=== PATIENT | female | born 1990 | race Hispanic/Latino ===

== ENCOUNTER 2019-03-10 20:00 | Emergency (ER) | payer MEDICAID | END 2019-03-10 20:41 | disposition home or self-care (01) | LOC: EDH 20:00 | DX: G51.0 Bell's palsy (principal); Z88.8 Allergy status to other drugs, medicaments and biological substances; Z79.899 Other long term (current) drug therapy ==

== ENCOUNTER 2021-03-17 18:17 | Emergency (ER) | payer MEDICAID ==
[~2021-03-17] VITALS: Ht 154.9 cm; Wt 98.9 kg
[2021-03-17 19:21] VITALS: BP 146/89
== END 2021-03-17 19:53 | disposition home or self-care (01) ==
LOC: EDH 18:17
DX: N63.10 Unspecified lump in the right breast, unspecified quadrant (principal)
CPT/HCPCS: 99281

== ENCOUNTER 2021-04-01 17:05 | Emergency (ER) | payer MEDICAID ==
[~2021-04-01] VITALS: Ht 154.9 cm; Wt 99.3 kg
[2021-04-01] MEDS ORDERED: IPRATROPIUM/ALBUTEROL SULFATE 3 ML SOLUTION IH ONE (17:30)
[2021-04-01 17:56] LABS: BASOPHILS % (AUTO) 1.2 % (0.0-5.0); EOSINOPHILS % (AUTO) 3.6 % (0.0-8.0); LYMPHOCYTES % (AUTO) 55.9 % (21.0-51.0); MEAN CORPUSCULAR HEMOGLOBIN 26.9 pg (27.0-33.0); MEAN CORPUSCULAR HGB CONC 31.7 g/dL (32.0-36.0); MEAN CORPUSCULAR VOLUME 84.8 fL (79-99); MONOCYTES % (AUTO) 5.6 % (3.0-13.0); NEUTROPHILS % (AUTO) 33.3 % (40.0-77.0); PLATELET COUNT (AUTO) 213 K/uL (130-400); RED BLOOD CELL COUNT(AUTO) 4.95 MIL/uL (4.00-5.50); RED CELL DISTRIBUTION WIDTH 13.6 % (11.0-15.5)
[2021-04-01] MEDS ORDERED: SOLU-MEDROL 125MG VIAL IVP ONE (18:00)
[2021-04-01] MEDS ORDERED: ACETAMINOPHEN WITH CODEINE 1 TAB TAB PO ONE (18:00)
[2021-04-01] MEDS ORDERED: 0.9%NACL 1000ML 1,000 ML IV ONE (18:00)
[2021-04-01 18:10] LABS: APPEARANCE,URINE Cloudy (CLEAR); BILIRUBIN,URINE Negative (NEGATIVE); COLOR,URINE Dark Yellow (YELLOW); GLUCOSE, URINE (UA) Negative (NEGATIVE); KETONES,URINE Trace mg/dL (NEGATIVE); LEUKOCYTE ESTERASE ,URINE Moderate (NEGATIVE); NITRATE,URINE Negative (NEGATIVE); OCCULT BLOOD,URINE Negative (NEGATIVE); PH,URINE 5.5 (5.0-8.0); PROTEIN,URINE Trace mg/dL (NEGATIVE)
[2021-04-01 18:14] LABS: HCG,QUAL RESULT NEGATIVE (NEGATIVE)
[2021-04-01] MEDS: ALBUTEROL 0.042% 1.25MG/3ML IH SCH ×2 (18:19→20:18)
[2021-04-01 18:25] LABS: BACTERIA,URINE Few /HPF (None Seen); MUCUS,URINE Few LPF (None Seen); RBC,URINE None Seen /HPF (0-1); YEAST,URINE BUDDING Few /HPF (None Seen)
[2021-04-01 18:38] LABS: ALBUMIN 3.8 g/dL (3.5-5.0); CREATININE 0.6 mg/dL (0.5-1.5); TOTAL PROTEIN, SERUM 8.2 g/dL (6.0-8.3)
[2021-04-01 18:39] LABS: POTASSIUM 4.2 mmol/L (3.5-5.1)
[2021-04-01] MEDS ORDERED: CEFTRIAXONE 1G VIAL IVP ONE (19:00)
[2021-04-01 19:23] VITALS: BP 129/88
[2021-04-01] MEDS ORDERED: GUAIFENESIN-CODEINE 5 ML SYRUP ONE (20:05)
[2021-04-01] MEDS ORDERED: ALBU1.252 IH (20:07)
[2021-04-01] MEDS ORDERED: CEPH500B PO (20:07)
[2021-04-01] MEDS ORDERED: PRED20TA3 PO (20:07)
[2021-04-01] MEDS ORDERED: CODE10LI PO (20:11)
[2021-04-01 20:20] VITALS: BP 124/84
[2021-04-01] MEDS ORDERED: GUAIFENESIN-CODEINE 5 ML SYRUP PO ONE (20:30)
== END 2021-04-01 20:34 | disposition home or self-care (01) ==
LOC: EDH 17:05
DX: J45.909 Unspecified asthma, uncomplicated (principal); N39.0 Urinary tract infection, site not specified; E11.9 Type 2 diabetes mellitus without complications; Z20.822 Contact with and (suspected) exposure to COVID-19; Z79.52 Long term (current) use of systemic steroids; Z79.899 Other long term (current) drug therapy; Z88.8 Allergy status to other drugs, medicaments and biological substances
CPT/HCPCS: 36415; 71045; 80053; 81001; 81025; 82948; 85025; 87088; 87635; 87804 ×2; 94640 ×2; 96361; 96374; 96375; 99285; C9803; J0696; J2930; J7030

== ENCOUNTER 2022-05-25 10:59 | Emergency (ER) | payer MEDICAID, OTHER ==
[~2022-05-25] VITALS: Ht 154.9 cm; Wt 91.2 kg
[~2022-05-25 10:59] MED LIST: ALBU1.252 IH; CEPH500B PO; CODE10LI PO; PRED20TA3 PO
[2022-05-25 11:19] VITALS: BP 138/78
[2022-05-25 11:19] LABS: BASOPHILS % (AUTO) 0.5 % (0.0-5.0); HEMATOCRIT 39.8 % (36-48); LYMPHOCYTES % (AUTO) 54.3 % (21.0-51.0); MEAN CORPUSCULAR HEMOGLOBIN 28.7 pg (27.0-33.0); MEAN CORPUSCULAR HGB CONC 33.9 g/dL (32.0-36.0); MEAN CORPUSCULAR VOLUME 84.7 fL (79-99); MONOCYTES % (AUTO) 4.7 % (3.0-13.0); NEUTROPHILS % (AUTO) 39.5 % (40.0-77.0); PLATELET COUNT (AUTO) 305 K/uL (130-400); RED CELL DISTRIBUTION WIDTH 12.7 % (11.0-15.5); WHITE BLOOD COUNT (AUTO) 5.7 K/uL (4.8-10.8)
[2022-05-25 11:29] LABS: CREATININE 0.7 mg/dL (0.5-1.5); POTASSIUM 3.1 mmol/L (3.5-5.1)
[2022-05-25 11:33] LABS: ALBUMIN 3.8 g/dL (3.5-5.0); MAGNESIUM 1.8 mg/dL (1.80-2.40); TOTAL PROTEIN, SERUM 8.1 g/dL (6.0-8.3)
[2022-05-25 11:49] LABS: APPEARANCE,URINE CLEAR (CLEAR); BILIRUBIN,URINE NEGATIVE (NEGATIVE); COLOR,URINE YELLOW (YELLOW); GLUCOSE, URINE (UA) NEGATIVE (NEGATIVE); KETONES,URINE >=80 mg/dL (NEGATIVE); LEUKOCYTE ESTERASE ,URINE SMALL (NEGATIVE); NITRATE,URINE NEGATIVE (NEGATIVE); OCCULT BLOOD,URINE NEGATIVE (NEGATIVE); PROTEIN,URINE NEGATIVE (NEGATIVE)
[2022-05-25 12:05] LABS: BACTERIA,URINE Few /HPF (None Seen); RBC,URINE 0-1 /HPF (0-1); SQUAMOUS EPITHELIAL CELL,UR 30-50 /HPF (0-2)
[2022-05-25 12:06] LABS: HCG,QUALITATIVE URINE NEGATIVE (NEGATIVE)
[2022-05-25 12:12] LABS: AMPHET/METH SCREEN,URINE NEGATIVE (NEGATIVE); BARBITURATE SCREEN, URINE NEGATIVE (NEGATIVE); BENZODIAZEPINES SCREEN,URINE NEGATIVE (NEGATIVE); CANNABINOID SCREEN,URINE NEGATIVE (NEGATIVE); COCAINE SCREEN,URINE NEGATIVE (NEGATIVE); PHENCYCLIDINE SCREEN,URINE NEGATIVE (NEGATIVE)
[2022-05-25] MEDS ORDERED: FAMOTIDINE 20MG VIAL IV ONE (13:00)
[2022-05-25] MEDS ORDERED: ONDANSETRON 4MG INJ IVP ONE (13:00)
[2022-05-25] MEDS ORDERED: IPRATROPIUM/ALBUTEROL SULFATE 3 ML SOLUTION IH ONE (13:00)
[2022-05-25] MEDS ORDERED: ACETAMINOPHEN 500 MG TABLET PO ONE (13:00)
[2022-05-25] MEDS ORDERED: KCL 20 MEQ ERTAB PO ONE (13:30)
== END 2022-05-25 15:03 ==
LOC: EEVIPCON 10:59 → EDH 10:59
DX: R06.00 Dyspnea, unspecified (principal); R07.89 Other chest pain; E87.6 Hypokalemia; R06.4 Hyperventilation; K21.9 Gastro-esophageal reflux disease without esophagitis; F41.9 Anxiety disorder, unspecified; J45.909 Unspecified asthma, uncomplicated; Z79.52 Long term (current) use of systemic steroids; Z86.16 Personal history of COVID-19; Z88.6 Allergy status to analgesic agent
CPT/HCPCS: 99284; 96374; 96375; 82550; 83735; 84484 ×2; 80053; 80305; 85025; 81025; 36415; 93005 ×2; 94640; 81001; J3490; J2405

== ENCOUNTER → 2022-10-17 | Outpatient (CLI) | payer OTHER | END | disposition home or self-care (01) | LOC: RAH 12:44 | PROVIDERS: ATTEND Internal Medicine | DX: N63.10 Unspecified lump in the right breast, unspecified quadrant (principal) | CPT/HCPCS: 76641 ==

== ENCOUNTER 2023-01-11 13:31 | Emergency (ER) | payer OTHER ==
[~2023-01-11] VITALS: Ht 154.9 cm; Wt 90.7 kg
[2023-01-11 14:19] LABS: APPEARANCE,URINE CLEAR (CLEAR); BILIRUBIN,URINE NEGATIVE (NEGATIVE); COLOR,URINE COLORLESS (YELLOW); GLUCOSE, URINE (UA) NEGATIVE (NEGATIVE); KETONES,URINE NEGATIVE (NEGATIVE); LEUKOCYTE ESTERASE ,URINE 75 Leu/uL (NEGATIVE); NITRATE,URINE NEGATIVE (NEGATIVE); OCCULT BLOOD,URINE NEGATIVE (NEGATIVE); PH,URINE 6.5 (5.0-8.0); PROTEIN,URINE NEGATIVE (NEGATIVE); UROBILINOGEN,URINE 0.2 mg/dL (0.2-1.0)
[2023-01-11 14:22] LABS: BASOPHILS % (AUTO) 0.2 % (0.0-5.0); EOSINOPHILS % (AUTO) 0.5 % (0.0-8.0); HEMATOCRIT 37.1 % (36-48); MEAN CORPUSCULAR HEMOGLOBIN 28.2 pg (27.0-33.0); MEAN CORPUSCULAR HGB CONC 33.4 g/dL (32.0-36.0); MEAN CORPUSCULAR VOLUME 84.5 fL (79-99); MONOCYTES % (AUTO) 5.5 % (3.0-13.0); NEUTROPHILS % (AUTO) 58.4 % (40.0-77.0); PLATELET COUNT (AUTO) 293 K/uL (130-400); RED BLOOD CELL COUNT(AUTO) 4.39 MIL/uL (4.00-5.50); RED CELL DISTRIBUTION WIDTH 12.9 % (11.0-15.5); WHITE BLOOD COUNT (AUTO) 5.7 K/uL (4.8-10.8)
[2023-01-11] MEDS ORDERED: CEFTRIAXONE 1G VIAL IVPB SCH (14:30)
[2023-01-11] MEDS ORDERED: 0.9%NACL 1000ML 1,000 ML IV SCH (14:30)
[2023-01-11 14:32] LABS: CREATININE 0.6 mg/dL (0.5-1.5); POTASSIUM 3.9 mmol/L (3.5-5.1)
[2023-01-11 14:33] LABS: INR 0.93 (0.85-1.15); PROTHROMBIN TIME 10.1 SEC (9.6-11.6)
[2023-01-11 14:36] LABS: ALBUMIN 3.5 g/dL (3.5-5.0); TOTAL PROTEIN, SERUM 7.9 g/dL (6.0-8.3)
[2023-01-11 14:37] LABS: BACTERIA,URINE RARE /HPF (None Seen); MUCUS,URINE RARE LPF (None Seen); SQUAMOUS EPITHELIAL CELL,UR RARE /HPF (0-2); WBC,URINE 0-1 /HPF (0-1)
[2023-01-11 16:14] VITALS: BP 96/66
== END 2023-01-11 16:15 | disposition home or self-care (01) ==
LOC: EEVIPCON 13:31 → EDH 13:31
DX: R07.89 Other chest pain (principal); J45.909 Unspecified asthma, uncomplicated; Z79.52 Long term (current) use of systemic steroids; Z86.16 Personal history of COVID-19; Z88.6 Allergy status to analgesic agent
CPT/HCPCS: 36415; 71045; 80053; 81001; 81025; 84484; 85025; 85610; 87088; 93005

== ENCOUNTER 2024-11-12 15:51 | Emergency (ER) | payer MEDICAID ==
[~2024-11-12] VITALS: Ht 154.9 cm; Wt 93.9 kg
[~2024-11-12 15:51] MED LIST changes: -CODE10LI PO; +CODE10LI2 PO; +ONDA-243 PO
--- NOTE | 2024-11-12 16:16 | ERN ---
ED Note History of Present Illness Stated Complaint: ABDOMINAL PAIN Chief Complaint: Hemorrhoids Time Seen by MD: 15:53 Dictation: PATIENT IS A 33-YEAR-OLD FEMALE WHO IS 29 WEEKS WITH COMPLAINTS OF PAINFUL HEMORRHOID SHE HAS HAD FOR APPROXIMATE TWO. WEEKS. SHE STATES SHE HAS ALREADY BEEN TO HER CREW TRUCK DRIVER DOCTOR, DR. VARGAS AND WAS PRESCRIBED STOOL SOFTENERS AND METAMUCIL HOWEVER STATES NOTHING IS HELPING. NO ABDOMINAL CRAMPING NO VAGINAL BLEEDING NO BACK PAIN. Allergies: Coded Allergies: metformin (Unverified Allergy, Unknown, 03/11/19) naproxen (Unverified Allergy, Unknown, HIVES, 05/25/22) Home Meds Active Scripts Acetaminophen with Codeine (Acetaminophen-Cod #3 Tablet) 300 Mg-30 Mg Tablet, 1 TAB PO Q4H PRN for MODERATE TO SEVERE PAIN, #10 TAB 0 Refills Prov:PHIL ROPER SAWING AND ASSEMBLY SUPERVISOR 11/12/24 Ondansetron (Ondansetron Odt) 4 Mg Tab.rapdis, 4 MG PO Q6HPRN PRN for nausea, #12 TAB 0 Refills Prov:CARMELA ZHANG 01/07/24 Cephalexin Monohydrate (Keflex) 500 Mg Cap, 500 MG PO TID for 7 Days, #21 CAP 0 Refills Prov:CARMELA ZHANG MACHINE OPERATOR [employer]AGING 01/07/24 Codeine Phosphate/Guaifenesin (Guaifen-Codeine 200-20 mg/10Ml) 10 Ml Liquid, 10 ML PO QID, #120 ML Prov:MYA STEIN 04/01/21 Prednisone (Prednisone) 20 Mg Tablet, 40 MG PO DAILY, #5 TAB Prov:MYA STEIN 04/01/21 Albuterol Sulfate (Albuterol Sulfate) 1.25 Mg/3 Ml Vial.neb, 1.25 MG IH QID, #2 BOX Prov:MYA STEIN 04/01/21 Cephalexin Monohydrate (Keflex) 500 Mg Cap, 500 MG PO TID, #21 CAP Prov:MYA STEIN 04/01/21 Past Medical History Past Medical History: Asthma, Hypertension Additional Past Medical Hx: RAD Surgical History: Other Surgical History Other: LT HAND SX Family History: Negative Social History: Negative History: Not Applicable RN Note Reviewed/Agreed w/PFSH: Yes Review of System Dictation CONSTITUTIONAL: NEGATIVE EXCEPT FOR HPI HEAD/FACE: NEGATIVE EXCEPT FOR HPI EENT: NEGATIVE EXCEPT FOR HPI RESPIRATORY: NEGATIVE EXCEPT FOR HPI GASTROINTESTINAL/ABDOMINAL: NEGATIVE EXCEPT FOR HPI PAINFUL HEMORRHOIDS GENITOURINARY: NEGATIVE EXCEPT FOR HPI MUSCULOSKELETAL: NEGATIVE EXCEPT FOR HPI INTEGUMENTARY: NEGATIVE EXCEPT FOR HPI NEUROLOGICAL/PSYCH: NEGATIVE EXCEPT FOR HPI HEMATOLOGIC/LYMPHATIC: NEGATIVE EXCEPT FOR HPI ALL SYSTEMS NEGATIVE, EXCEPT NOTED ABOVE. 13 POINT REVIEW OF SYSTEMS ASSESSED AND ALL NEGATIVE EXCEPT FOR ABOVE. Initial Vital Sign VS Vital Signs Date Time Temp Pulse Resp B/P (MAP) Pulse Ox O2 Delivery O2 Flow Rate FiO2 11/12/24 15:59 98.1 96 18 156/86 97 Room Air 0 Physical Exam Dictation VITAL SIGNS REVIEWED GENERAL APPEARANCE: ALERT, ORIENTED X 3, MILD ACUTE DISTRESS, WELL DEVELOPED, NOURISHED. HEAD AND FACE: NON-TRAUMATIC. EYES: PERRL, PINK CONJUNCTIVAS, EYELID NO TRAUMA, ANTERIOR CHAMBER WITH ARCUS SENILIS. EARS: PINNAS INTACT AND NO SIGNS OF TRAUMA OR ERYTHEMA EAR CANALS CLEAR AND NO DISCHARGE TM NO ERYTHEMA NOSE: NO DISCHARGE, NO BLEEDING. OROPHARYNX: MOUTH NORMAL, TONGUE PINK, PHARYNX CLEAR,NO ERYTHEMA, TONSILS NO EXUDATES, NO ABSCESSES NOTED, MUCOUS MEMBRANE MOIST NECK: SUPPLE, NON-TENDER, NO THYROMEGALY, NO MASSES, NO JVD, NO BRUITS BREAST:DEFERRED CHEST:NO TENDERNESS, NO CREPITUS, NO PARADOXICAL MOVEMENT, NO RETRACTIONS LUNGS:CLEAR, WELL-VENTILATED, SYMMETRIC, NO RALES, NO WHEEZING, NO RHONCHI, NO STRIDOR, GOOD BREATH SOUNDS BILATERALLY HEART: REGULAR RATE, REGULAR RHYTHM, NO MURMUR, NO GALLOPS VASCULAR: NO PERIPHERAL EDEMA, ABDOMEN: SOFT, POSITIVE BOWEL SOUNDS, NONDISTENDED, NO GUARDING, NONTENDER, NO REBOUND, NO MASSES NO HEPATOMEGALY, NO SPLENOMEGALY, NO MINOR'S SIGN, NO HERNIAS. RECTAL: DEFERRED GENITAL: DEFERRED NEUROLOGICAL: NORMAL SPEECH, MOTOR FUNCTION INTACT, SENSORY FUNCTION INTACT MUSCULOSKELETAL: NECK NONTENDER, FULL RANGE OF MOTION, BACK NONTENDER, FULL RANGE OF MOTION, EXTREMITIES: NONTENDER, FULL RANGE OF MOTION SKIN: COLOR PINK, DRY, NO TURGOR, NO RASH, NO LACERATIONS, NO ABRASIONS, NO CONTUSIONS. LYMPHATIC: DEFERRED Results (Laboratory/Radiology) Labs Reviewed?: Yes ED Course ED Course Orders Procedure Category Date Status Time *Nursing CPOE 11/12/24 Transmitted Communication: 16:13 Acetaminophen With PHA 11/12/24 Complete Codeine (Tylenol-Code 16:30 Current Medications Medications (Trade) Dose Ordered Sig/Rickie Route PRN Reason Start Time Stop Time Status Last Admin Dose Admin Acetaminophen/ Codeine Phosphate (TYLenol-coDEINE TAB) 2 tab ONCE ONCE PO 11/12/24 16:30 11/12/24 16:31 DC Vital Signs Date Time Temp Pulse Resp B/P (MAP) Pulse Ox O2 Delivery O2 Flow Rate FiO2 11/12/24 15:59 98.1 96 18 156/86 97 Room Air 0 PATIENT DISCHARGED HOME WITH TYLENOL WITH CODEINE FOR SEVERE PAIN. NORMALLY THIS WOULD ALSO INCLUDE HYDROCORTISONE SUPPOSITORIES B.I.D. HOWEVER THIS IS A CATEGORY C DRUG AND WE WILL REFER HER TO HER CREW TRUCK DRIVER DOCTOR TOMORROW FOR MANAGE Medical Decision Making MDM MEDICAL DISCHARGE MAKING BASED ON EMPIRIC TREATMENT FOR PAINFUL HEMORRHOIDS. HEART TONE WAS CHECKED AND DOCUMENTED BY RIGHT OF WAY WORKER. PATIENT TOLD TO CONTINUE ALL MEDICATIONS FROM HER [employer]W TRUCK DRIVER DOCTOR AND SEE HER TOMORROW MORNING FOR REFERRAL TO COLORECTAL SURGERY DX & DISP Disposition: Discharge Departure Impression: Primary Impression: Hemorrhoids during Condition: Stable Scripts Acetaminophen with Codeine (Acetaminophen-Cod #3 Tablet) 300 Mg-30 Mg Tablet 1 TAB PO Q4H PRN for MODERATE TO SEVERE PAIN, #10 TAB 0 Refills Prov: PHIL ROPER SAWING AND ASSEMBLY SUPERVISOR 11/12/24 Additional Instructions: Follow-up with primary care provider in 1 to 2 days. Take medications as directed here in the emergency room. Okay to continue home medications unless otherwise discussed during your visit in the emergency room today. Return to your nearest emergency room if symptoms worsen or if there is no improvement. Call 911 if you need immediate assistance. Take Tylenol or Motrin [id number] as needed and if no contraindications are present. Increase oral hydration. A wound culture or urine culture was ordered here in the emergency room department please follow-up with primary care provider and advise them to get repeat ports from our facility. If you had any José Luis wrap/splints that were applied here, please do not remove them until you see your primary care or specialty. Suggest Metamucil1 tsp in8 oz of water/[id number] twice a day. Continue all your medications from your doctor and see her in the next 1-2 days for management or referral to colorectal surgery. Take Tylenol with codeine for severe pain Referrals: SANDIP MONTANO PA-C (PCP) Time of Disposition: 16:32 I have reviewed the case, and I agree with, Diagnosis and Plan PHIL ROPER NP Nov 12, 2024 16:16 ANH QUEZADA DO Nov 12, 2024 16:48
[2024-11-12] MEDS ORDERED: ACET-2079 PO (16:31)
[2024-11-12] MEDS: acetaMINOPHEN WITH coDEINE 1 TAB TAB PO ONE (16:52)
[2024-11-12 17:30] VITALS: BP 146/87; PULSE 90; RESP 18; TEMP 98.1; O2SAT 97
== END 2024-11-12 17:33 | disposition home or self-care (01) ==
LOC: EDH 15:51
DX: O22.43 Hemorrhoids in pregnancy, third trimester (principal); I10 Essential (primary) hypertension; J45.909 Unspecified asthma, uncomplicated; Z3A.29 29 weeks gestation of pregnancy; Z79.52 Long term (current) use of systemic steroids; Z88.6 Allergy status to analgesic agent
CPT/HCPCS: 99283

== ENCOUNTER 2025-03-05 21:08 | Emergency (ER) | payer OTHER, MEDICAID ==
[~2025-03-05] VITALS: Ht 154.9 cm; Wt 84.4 kg
[~2025-03-05 21:08] MED LIST changes: +ACET-2079 PO
[2025-03-05 21:48] LABS: BASOPHILS # (AUTO) 0.02 K/uL (0.00-0.20); BASOPHILS % (AUTO) 0.4 % (0.0-5.0); EOSINOPHILS # (AUTO) 0.06 K/uL (0.00-0.70); EOSINOPHILS % (AUTO) 1.2 % (0.0-8.0); HEMATOCRIT 40.5 % (36-48); IMMATURE GRANULOCYTE ABSOLUTE 0.01 K/uL (0-1); LYMPHOCYTES # (AUTO) 2.5 K/uL (1.0-4.8); LYMPHOCYTES % (AUTO) 49.8 % (21.0-51.0); MEAN CORPUSCULAR HEMOGLOBIN 25.5 pg (27.0-33.0); MEAN CORPUSCULAR HGB CONC 30.9 g/dL (32.0-36.0); MEAN CORPUSCULAR VOLUME 82.7 fL (79-99); MONOCYTES # (AUTO) 0.3 K/uL (0.1-1.0); MONOCYTES % (AUTO) 5.2 % (3.0-13.0); NEUTROPHILS # (AUTO) 2.2 K/uL (1.8-7.7); NEUTROPHILS % (AUTO) 43.2 % (40.0-77.0); PLATELET COUNT (AUTO) 245 K/uL (130-400); RED CELL DISTRIBUTION WIDTH 17.2 % (11.0-15.5)
[2025-03-05 22:00] LABS: CREATININE 0.5 mg/dL (0.5-1.0); MAGNESIUM 1.9 mg/dL (1.80-2.40); POTASSIUM 4.1 mmol/L (3.5-5.1)
[2025-03-05 22:09] LABS: ADD UA MICROSCOPIC YES; APPEARANCE,URINE TURBID (CLEAR); BILIRUBIN,URINE NEGATIVE (NEGATIVE); COLOR,URINE BROWN (YELLOW); GLUCOSE, URINE (UA) NEGATIVE (NEGATIVE); KETONES,URINE 5 mg/dL (NEGATIVE); NITRATE,URINE NEGATIVE (NEGATIVE); OCCULT BLOOD,URINE LARGE (NEGATIVE); PH,URINE 5.5 (5.0-8.0); PROTEIN,URINE 30 mg/dL (NEGATIVE)
[2025-03-05 22:10] LABS: MUCUS,URINE MOD LPF (None Seen); RBC,URINE TNTC /HPF (0-1); SQUAMOUS EPITHELIAL CELL,UR MOD /HPF (0-2)
[2025-03-05 22:11] LABS: LEUKOCYTE ESTERASE ,URINE NEGATIVE Leu/uL (NEGATIVE)
--- NOTE | 2025-03-05 23:54 | ERN ---
General Chief Complaint: Chest Pain Stated Complaint: HIGH BLOOD PRESSURE, CHEST PAIN Time Seen by MD: 21:27 Time Seen by Midlevel: 21:27 Source: patient History of Present Illness Initial Comments Patient is a 34-year-old female brought in from with the scene to with complaints of high blood pressure and chest pain that started prior to arrival. Blood pressure obtained 30 minutes prior to arrival was 165/120. On arrival with the patient has no complaints. She does have a history of hypertension but has not been taking hypertensive medications due to . She reports recent delivery on January 23, 2025. Allergies: Coded Allergies: amoxicillin (Unverified Allergy, Unknown, 03/05/25) metformin (Unverified Allergy, Unknown, 03/11/19) naproxen (Unverified Allergy, Unknown, HIVES, 05/25/22) Home Meds Active Scripts Acetaminophen with Codeine (Acetaminophen-Cod #3 Tablet) 300 Mg-30 Mg Tablet, 1 TAB PO Q4H PRN for MODERATE TO SEVERE PAIN, #10 TAB 0 Refills Prov:PHIL ROPER WEIGHER AND CHARGER 11/12/24 Ondansetron (Ondansetron Odt) 4 Mg Tab.rapdis, 4 MG PO Q6HPRN PRN for nausea, #12 TAB 0 Refills Prov:CARMELA ZHANG [facility] 01/07/24 Cephalexin Monohydrate (Keflex) 500 Mg Cap, 500 MG PO TID for 7 Days, #21 CAP 0 Refills Prov:CARMELA ZHANG [facility] 01/07/24 Codeine Phosphate/Guaifenesin (Guaifen-Codeine 200-20 mg/10Ml) 10 Ml Liquid, 10 ML PO QID, #120 ML Prov:MYA STEIN 04/01/21 Prednisone (Prednisone) 20 Mg Tablet, 40 MG PO DAILY, #5 TAB Prov:MYA STEIN 04/01/21 Albuterol Sulfate (Albuterol Sulfate) 1.25 Mg/3 Ml Vial.neb, 1.25 MG IH QID, #2 BOX Prov:MYA STEIN 04/01/21 Cephalexin Monohydrate (Keflex) 500 Mg Cap, 500 MG PO TID, #21 CAP Prov:MYA STEIN 04/01/21 Past Medical History Past Medical History: Asthma, Hypertension Medical History Other: RAD Past Surgical History: Other Surgical History Other: LT HAND SX Family History Family History: Negative Social History Social History: Negative Female( History) History: Not Applicable ROS Dictation CONSTITUTIONAL: Negative except for HPI HEAD/FACE: Negative except for HPI EENT: Negative except for HPI RESPIRATORY: Negative except for HPI GASTROINTESTINAL/ABDOMINAL: Negative except for HPI GENITOURINARY: Negative except for HPI MUSCULOSKELETAL: Negative except for HPI INTEGUMENTARY: Negative except for HPI NEUROLOGICAL/PSYCH: Negative except for HPI HEMATOLOGIC/LYMPHATIC: Negative except for HPI All Systems Negative, Except as noted above. 13 point review of systems assessed and all negative except for above. Physical Exam Physical Exam Dictation Vital Signs reviewed General Appearance: Alert, oriented x 3, no acute distress, well developed, nourished. Head and Face: non-traumatic. Eyes: PERRL, pink conjunctivas, eyelid no trauma, anterior chamber with arcus senilis. Ears: Pinnas intact and no signs of trauma or erythema ear canals clear and no discharge TM no erythema Nose: No discharge, no bleeding. Oropharynx: Mouth normal, tongue pink, pharynx clear,no erythema, tonsils no exudates, no abscesses noted, mucous membrane moist Neck: Supple, non-tender, no thyromegaly, no masses, no JVD, no bruits Breast:Deferred Chest:No tenderness, no crepitus, no paradoxical movement, no retractions Lungs:Clear, well-ventilated, symmetric, no rales, no wheezing, no rhonchi, no stridor, good breath sounds bilaterally Heart: Regular rate, regular rhythm, no murmur, no gallops Vascular: no peripheral edema, Abdomen: Soft, positive bowel sounds, nondistended, no guarding, nontender, no rebound, no masses no hepatomegaly, no splenomegaly, no Burger's sign, no hernias. Rectal: Deferred Genital: Deferred Neurological: Normal speech, motor function intact, sensory function intact Musculoskeletal: Neck nontender, full range of motion, back nontender, full range of motion, Extremities: nontender, full range of motion Skin: Color pink, dry, no turgor, no rash, no lacerations, no abrasions, no contusions. Lymphatic: Deferred Results Laboratory and Microbiology Lab and Micro Result Laboratory Tests Test 03/05/25 21:40 03/05/25 21:44 Urine Color BROWN (YELLOW) Urine Appearance TURBID (CLEAR) Urine pH 5.5 (5.0-8.0) Urine Specific [place] 1.027 (1.001-1.031) Urine Protein 30 mg/dL (NEGATIVE) H Urine Glucose (UA) NEGATIVE mg/dL (NEGATIVE) Urine Ketones 5 mg/dL (NEGATIVE) H Urine Occult Blood LARGE (NEGATIVE) H Urine Nitrate NEGATIVE (NEGATIVE) Urine Bilirubin NEGATIVE mg/dL (NEGATIVE) Urine Urobilinogen 2.0 mg/dL (0.2-1.0) H Urine Leukocyte Esterase NEGATIVE Tuan/uL Urine RBC TNTC /HPF (0-1) H Urine WBC None /HPF (0-1) Urine Squamous Epithelial Cells MOD /HPF (0-2) Urine Bacteria None /HPF (None Seen) White Blood Count 5.0 K/uL (4.8-10.8) Red Blood Count 4.90 MIL/uL (4.00-5.50) Hemoglobin 12.5 g/dL (12.0-16.0) Hematocrit 40.5 % (36-48) Mean Corpuscular Volume 82.7 fL (79-99) Mean Corpuscular Hemoglobin 25.5 pg (27.0-33.0) L Mean Corpuscular Hemoglobin Concent 30.9 g/dL (32.0-36.0) L Red Cell Distribution Width 17.2 % (11.0-15.5) H Platelet Count 245 K/uL (130-400) Mean Platelet Volume 10.4 fL (7.5-10.5) Immature Granulocyte % (Auto) 0.2 % (0-1) Neutrophils (%) (Auto) 43.2 % (40.0-77.0) Lymphocytes (%) (Auto) 49.8 % (21.0-51.0) Monocytes (%) (Auto) 5.2 % (3.0-13.0) Eosinophils (%) (Auto) 1.2 % (0.0-8.0) Basophils (%) (Auto) 0.4 % (0.0-5.0) Neutrophils # (Auto) 2.2 K/uL (1.8-7.7) Lymphocytes # (Auto) 2.5 K/uL (1.0-4.8) Monocytes # (Auto) 0.3 K/uL (0.1-1.0) Eosinophils # (Auto) 0.06 K/uL (0.00-0.70) Basophils # (Auto) 0.02 K/uL (0.00-0.20) Absolute Immature Granulocyte (auto 0.01 K/uL (0-1) Nucleated Red Blood Cells 0.0 % (0.0-0.19) Red Blood Cell Morphology See comments Sodium Level 141 mmol/L (136-145) Potassium Level 4.1 mmol/L (3.5-5.1) Chloride Level 105 mmol/L (101-111) Carbon Dioxide Level 31 mmol/L (21-32) Blood Urea Nitrogen 12 mg/dL (7-18) Creatinine 0.5 mg/dL (0.5-1.0) Glomerular Filtration Rate Calc 126 mL/min (>90) Random Glucose 91 mg/dL (70-105) Total Calcium 9.0 mg/dL (8.5-10.1) Magnesium Level 1.90 mg/dL (1.80-2.40) Total Bilirubin 0.6 mg/dL (0.2-1.0) Direct Bilirubin 0.1 mg/dL (0.0-0.3) Aspartate Amino Transf (AST/SGOT) 16 U/L (10-37) Alanine Aminotransferase (ALT/SGPT) 23 U/L (12-78) Alkaline Phosphatase 85 U/L (50-136) Troponin I High Sensitivity 8 ng/L (4-50) Total Protein 7.9 g/dL (6.0-8.3) Albumin 3.7 g/dL (3.5-5.0) Labs Reviewed?: Yes MDM MDM: Differential diagnosis: Uncontrolled hypertension, dehydration, electrolyte abnormality There are no social concerns with this patient. Prescription drug management Prescriptions will include: None Medical management and examination interpretation discussions were had by me with other qualified healthcare professionals as indicated for the patient's care. ED Course Orders Procedure Category Date Status Time 12 Lead Ekg Tracing- EKG 03/05/25 Logged Technical 21:21 Cbc With Differential LAB 03/05/25 Complete 21:31 Basic Metabolic Panel LAB 03/05/25 Complete 21:31 Magnesium LAB 03/05/25 Complete 21:31 Troponin I High LAB 03/05/25 Complete Sensitivity 21:31 Urinalysis Profile LAB 03/05/25 Complete 21:31 Chest 1vw RAD 03/05/25 Taken 21:31 Ct Head/Brain W/O CT 03/05/25 Resulted Contrast 23:53 Hepatic Function Panel LAB 03/05/25 Complete 21:44 Vital Signs Date Time Temp Pulse Resp B/P (MAP) Pulse Ox O2 Delivery O2 Flow Rate FiO2 03/05/25 23:57 75 19 155/74 99 Room Air* 0 03/05/25 23:11 68 19 166/84 99 Room Air* 0 03/05/25 22:21 98.2 74 19 144/91 98 Room Air* 0 03/05/25 21:16 79 19 182/97 98 Room Air* 0 03/05/25 21:10 98.4 71 20 194/115 99 Room Air DX & DISP Disposition: Discharge Departure Impression: Primary Impression: Non-cardiac chest pain Additional Impression: Elevated blood pressure reading Condition: Stable Additional Instructions: Keep a log of your blood pressure for the next two weeks. His blood pressure is consistently high you may need to start anti hypertensives. Your blood work today is unremarkable. Your chest x-ray is normal. Your EKGs normal. Your cardiac enzymes are negative. Referrals: CHOLO VARGAS CNM I have reviewed the case, and I agree with, Diagnosis and Plan I performed the substantive portion of the visit. I have reviewed and personally made and approve the management plan that is documented in the note by myself or the CLEO. I acknowledge for responsibility for the patient's management plan. TIEN ALBERT Mar 05, 2025 23:54
[2025-03-06 00:11] LABS: ALBUMIN 3.7 g/dL (3.5-5.0); BILIRUBIN,DIRECT 0.1 mg/dL (0.0-0.3); BILIRUBIN,TOTAL 0.6 mg/dL (0.2-1.0); TOTAL PROTEIN, SERUM 7.9 g/dL (6.0-8.3)
--- NOTE | 2025-03-06 00:31 | HMCIMG ---
CT HEAD/BRAIN W/O CONTRAST HISTORY: Blurry vision COMPARISON: None TECHNIQUE: Multiple sequential axial images of the head were obtained from the base of the skull through vertex. Patient was not given contrast through intravenous route. FINDINGS: The ventricles and extraventricular CSF spaces are nondilated for patient's age. There is no midline shift, mass effect or herniation. No acute intracranial bleed is seen. Visualized portion of the paranasal sinuses are grossly within normal limits. IMPRESSION: 1. No acute intracranial bleed is seen. CT was performed with one or more following dose reduction techniques: automated exposure control, adjustment of the mA and kv according to patient's size, or use of a iterative reconstruction technique.
[2025-03-06 00:54] VITALS: BP 158/88; PULSE 79; RESP 19; TEMP 98.3; O2SAT 99
--- NOTE | 2025-03-06 08:06 | EKG ---
[facility] Test Date: 2025-03-05 Test Time: 21:24:56 Pat Name: CORY JIMENEZ Department: [facility] Room: Gender: F [employer] Consultant: [id number] : 1990 Requested By: KALPANA GALAN Order Number: [id number] Reading MD: Yasmin Jennings Measurements Intervals [place] Rate: 65 P: 14 AR: 165 QRS: -21 QRSD: 95 T: -7 QT: 392 QTc: 408 Interpretive Statements Sinus rhythm Borderline T abnormalities, diffuse leads Compared to ECG 01/11/2023 13:39:34 T-wave abnormality now present Electronically Signed On 03-06-2025 12:57:17 CDT by Yasmin Jennings Please click the below link to view image of tracing.
--- NOTE | 2025-03-06 08:50 | HMCIMG ---
Exam Type: CHEST 1VW Clinical Information: cp Comparison: None Findings: The lungs are clear of infiltrates. The heart is normal in size. The bony and soft tissue structures of the chest are unremarkable. Impression: Clear lungs.
== END 2025-03-06 00:56 | disposition home or self-care (01) ==
LOC: EEVIPCON 21:08 → EDH 21:08
DX: R07.89 Other chest pain (principal); I10 Essential (primary) hypertension; J45.909 Unspecified asthma, uncomplicated; Z79.52 Long term (current) use of systemic steroids; Z88.0 Allergy status to penicillin; Z88.6 Allergy status to analgesic agent
CPT/HCPCS: 36415; 70450; 71045; 80048; 80076; 81001; 83735; 84484; 85025; 93005; 99285

== ENCOUNTER 2025-03-17 21:17 | Emergency (ER) | payer OTHER, MEDICAID ==
[~2025-03-17] VITALS: Ht 154.9 cm; Wt 83.0 kg
[2025-03-17 22:29] LABS: IMMATURE GRANULOCYTE ABSOLUTE 0.01 K/uL (0-1); NUCLEATED RED BLOOD CELLS 0.0 % (0.0-0.19); PLATELET COUNT (AUTO) 346 K/uL (130-400); RED BLOOD CELL COUNT(AUTO) 4.83 MIL/uL (4.00-5.50); RED CELL DISTRIBUTION WIDTH 17.2 % (11.0-15.5); WHITE BLOOD COUNT (AUTO) 5.0 K/uL (4.8-10.8)
[2025-03-17 22:37] LABS: CREATININE 0.7 mg/dL (0.5-1.0); GLOMERULAR FILTR. RATE CALC 116.0 mL/min (>90); GLUCOSE,RANDOM 110.0 mg/dL (70-105); SODIUM SERUM 139.0 mmol/L (136-145); UREA NITROGEN, BLOOD 15.0 mg/dL (7-18)
--- NOTE | 2025-03-17 23:23 | ERN ---
General Chief Complaint: Anxiety/Panic Attack Stated Complaint: C/O ANXIETY, PANIC ATTACK Time Seen by MD: 21:20 Time Seen by Midlevel: 21:20 Source: patient History of Present Illness Initial Comments THE PATIENT IS A 34-YEAR-OLD FEMALE WITH A PAST MEDICAL HISTORY OF ANXIETY AND PANIC ATTACKS PRESENTING TO THE EMERGENCY DEPARTMENT FOR EVALUATION OF A PANIC ATTACK.. ON ARRIVAL THE PATIENT'S HYPERVENTILATING. SHE DOES REPORT SIMILAR EPISODES IN THE PAST AND STATES SHE IS CURRENTLY UNDER A LOT OF STRESS. SHE DOES REPORT SOME CHEST PRESSURE BUT DENIES ANY OTHER SYMPTOMS Allergies: Coded Allergies: amoxicillin (Unverified Allergy, Unknown, 03/05/25) metformin (Unverified Allergy, Unknown, 03/11/19) naproxen (Unverified Allergy, Unknown, HIVES, 05/25/22) Home Meds Active Scripts Acetaminophen with Codeine (Acetaminophen-Cod #3 Tablet) 300 Mg-30 Mg Tablet, 1 TAB PO Q4H PRN for MODERATE TO SEVERE PAIN, #10 TAB 0 Refills Prov:[facility] SCI[employer] 11/12/24 Ondansetron (Ondansetron Odt) 4 Mg Tab.rapdis, 4 MG PO Q6HPRN PRN for nausea, #12 TAB 0 Refills Prov:CARMELA ZHANG DIRECTOR OF BILLING 01/07/24 Cephalexin Monohydrate (Keflex) 500 Mg Cap, 500 MG PO TID for 7 Days, #21 CAP 0 Refills Prov:CARMELA ZHANG DIRECTOR OF BILLING 01/07/24 Codeine Phosphate/Guaifenesin (Guaifen-Codeine 200-20 mg/10Ml) 10 Ml Liquid, 10 ML PO QID, #120 ML Prov:MYA STEIN 04/01/21 Prednisone (Prednisone) 20 Mg Tablet, 40 MG PO DAILY, #5 TAB Prov:MYA STEIN 04/01/21 Albuterol Sulfate (Albuterol Sulfate) 1.25 Mg/3 Ml Vial.neb, 1.25 MG IH QID, #2 BOX Prov:MYA STEIN 04/01/21 Cephalexin Monohydrate (Keflex) 500 Mg Cap, 500 MG PO TID, #21 CAP Prov:MYA STEIN 04/01/21 Past Medical History Past Medical History: Asthma, Hypertension Medical History Other: RAD Past Surgical History: Other Surgical History Other: LT HAND SX Family History Family History: Negative Social History Social History: Negative Female( History) History: Not Applicable LMP: January 23, 2025 ROS Dictation CONSTITUTIONAL: NEGATIVE EXCEPT FOR HPI HEAD/FACE: NEGATIVE EXCEPT FOR HPI EENT: NEGATIVE EXCEPT FOR HPI RESPIRATORY: NEGATIVE EXCEPT FOR HPI GASTROINTESTINAL/ABDOMINAL: NEGATIVE EXCEPT FOR HPI GENITOURINARY: NEGATIVE EXCEPT FOR HPI MUSCULOSKELETAL: NEGATIVE EXCEPT FOR HPI INTEGUMENTARY: NEGATIVE EXCEPT FOR HPI NEUROLOGICAL/PSYCH: NEGATIVE EXCEPT FOR HPI HEMATOLOGIC/LYMPHATIC: NEGATIVE EXCEPT FOR HPI ALL SYSTEMS NEGATIVE, EXCEPT NOTED ABOVE. 13 POINT REVIEW OF SYSTEMS ASSESSED AND ALL NEGATIVE EXCEPT FOR ABOVE. Physical Exam Physical Exam Dictation VITAL SIGNS REVIEWED GENERAL APPEARANCE: ALERT, ORIENTED X 3, NO ACUTE DISTRESS, WELL DEVELOPED, NOURISHED. HEAD AND FACE: NON-TRAUMATIC. EYES: PERRL, PINK CONJUNCTIVAS, EYELID NO TRAUMA, ANTERIOR CHAMBER WITH ARCUS SENILIS. EARS: PINNAS INTACT AND NO SIGNS OF TRAUMA OR ERYTHEMA EAR CANALS CLEAR AND NO DISCHARGE TM NO ERYTHEMA NOSE: NO DISCHARGE, NO BLEEDING. OROPHARYNX: MOUTH NORMAL, TONGUE PINK, PHARYNX CLEAR,NO ERYTHEMA, TONSILS NO EXUDATES, NO ABSCESSES NOTED, MUCOUS MEMBRANE MOIST NECK: SUPPLE, NON-TENDER, NO THYROMEGALY, NO MASSES, NO JVD, NO BRUITS BREAST:DEFERRED CHEST:NO TENDERNESS, NO CREPITUS, NO PARADOXICAL MOVEMENT, NO RETRACTIONS LUNGS:CLEAR, WELL-VENTILATED, SYMMETRIC, NO RALES, NO WHEEZING, NO RHONCHI, NO STRIDOR, GOOD BREATH SOUNDS BILATERALLY HEART: REGULAR RATE, REGULAR RHYTHM, NO MURMUR, NO GALLOPS VASCULAR: NO PERIPHERAL EDEMA, ABDOMEN: SOFT, POSITIVE BOWEL SOUNDS, NONDISTENDED, NO GUARDING, NONTENDER, NO REBOUND, NO MASSES NO HEPATOMEGALY, NO SPLENOMEGALY, NO MINOR'S SIGN, NO HERNIAS. RECTAL: DEFERRED GENITAL: DEFERRED NEUROLOGICAL: NORMAL SPEECH, MOTOR FUNCTION INTACT, SENSORY FUNCTION INTACT MUSCULOSKELETAL: NECK NONTENDER, FULL RANGE OF MOTION, BACK NONTENDER, FULL RANGE OF MOTION, EXTREMITIES: NONTENDER, FULL RANGE OF MOTION SKIN: COLOR PINK, DRY, NO TURGOR, NO RASH, NO LACERATIONS, NO ABRASIONS, NO CONTUSIONS. LYMPHATIC: DEFERRED Results Laboratory and Microbiology Lab and Micro Result Laboratory Tests Test 03/17/25 22:00 White Blood Count 5.0 K/uL (4.8-10.8) Red Blood Count 4.83 MIL/uL (4.00-5.50) Hemoglobin 12.6 g/dL (12.0-16.0) Hematocrit 38.1 % (36-48) Mean Corpuscular Volume 78.9 fL (79-99) L Mean Corpuscular Hemoglobin 26.1 pg (27.0-33.0) L Mean Corpuscular Hemoglobin Concent 33.1 g/dL (32.0-36.0) Red Cell Distribution Width 17.2 % (11.0-15.5) H Platelet Count 346 K/uL (130-400) Mean Platelet Volume 10.7 fL (7.5-10.5) H Immature Granulocyte % (Auto) 0.2 % (0-1) Neutrophils (%) (Auto) 48.1 % (40.0-77.0) Lymphocytes (%) (Auto) 45.7 % (21.0-51.0) Monocytes (%) (Auto) 4.4 % (3.0-13.0) Eosinophils (%) (Auto) 1.0 % (0.0-8.0) Basophils (%) (Auto) 0.6 % (0.0-5.0) Neutrophils # (Auto) 2.4 K/uL (1.8-7.7) Lymphocytes # (Auto) 2.3 K/uL (1.0-4.8) Monocytes # (Auto) 0.2 K/uL (0.1-1.0) Eosinophils # (Auto) 0.05 K/uL (0.00-0.70) Basophils # (Auto) 0.03 K/uL (0.00-0.20) Absolute Immature Granulocyte (auto 0.01 K/uL (0-1) Nucleated Red Blood Cells 0.0 % (0.0-0.19) Sodium Level 139 mmol/L (136-145) Potassium Level 3.6 mmol/L (3.5-5.1) Chloride Level 104 mmol/L (101-111) Carbon Dioxide Level 21 mmol/L (21-32) Blood Urea Nitrogen 15 mg/dL (7-18) Creatinine 0.7 mg/dL (0.5-1.0) Glomerular Filtration Rate Calc 116 mL/min (>90) Random Glucose 110 mg/dL (70-105) H Total Calcium 9.2 mg/dL (8.5-10.1) Troponin I High Sensitivity 12 ng/L (4-50) Serum Test, Qualitative NEGATIVE (NEGATIVE) Labs Reviewed?: Yes MDM MDM: DIFFERENTIAL DIAGNOSIS: ANXIETY, ACUTE CORONARY SYNDROME, DEHYDRATION, ELECTROLYTE ABNORMALITY THERE ARE NO SOCIAL CONCERNS WITH THIS PATIENT. PRESCRIPTION DRUG MANAGEMENT PRESCRIPTIONS WILL INCLUDE: NONE MEDICAL MANAGEMENT AND EXAMINATION INTERPRETATION DISCUSSIONS WERE HAD BY ME WITH OTHER QUALIFIED HEALTHCARE PROFESSIONALS INDICATED FOR THE PATIENT'S CARE. ED Course Orders Procedure Category Date Status Time 12 Lead Ekg Tracing- EKG 03/17/25 Logged Technical 21:58 Cbc With Differential LAB 03/17/25 Complete 21:58 Basic Metabolic Panel LAB 03/17/25 Complete 21:58 Testing, LAB 03/17/25 Complete Serum Hcg 21:58 Troponin I High LAB 03/17/25 Complete Sensitivity 21:58 Diazepam 5 Mg/Ml 2 Ml PHA 03/17/25 Complete Syg (Valium 5 Mg/M 22:30 Current Medications Medications (Trade) Dose Ordered Sig/Rickie Route PRN Reason Start Time Stop Time Status Last Admin Dose Admin Diazepam (VALium 5 MG/ML 2 ML SYG) 10 mg ONCE ONCE IVP 03/17/25 22:30 03/17/25 22:31 DC 03/17/25 22:23 Vital Signs Date Time Temp Pulse Resp B/P (MAP) Pulse Ox O2 Delivery O2 Flow Rate FiO2 03/17/25 22:03 99.0 98 18 125/75 99 Room Air* 0 21 03/17/25 21:19 98.2 116 20 122/92 100 Room Air DX & DISP Disposition: Discharge Departure Impression: Primary Impression: Anxiety reaction Additional Impression: Non-cardiac chest pain Condition: Stable Additional Instructions: YOUR BLOOD WORK TODAY IS UNREMARKABLE. YOUR EKGS NORMAL. YOUR CARDIAC ENZYMES ARE NEGATIVE. Referrals: SELF,REFERRAL (PCP) I have reviewed the case, and I agree with, Diagnosis and Plan I PERFORMED THE SUBSTANTIVE PORTION OF THE VISIT. I HAVE REVIEWED AND PERSONALLY MADE AND APPROVE THE MANAGEMENT PLAN THAT IS DOCUMENTED IN THE NOTE BY MYSELF OR THE CLEO. I ACKNOWLEDGE FOR RESPONSIBILITY FOR THE PATIENT'S MANAGEMENT PLAN. TIEN ALBERT Mar 17, 2025 23:23
[2025-03-17 23:41] VITALS: BP 119/65; PULSE 88; RESP 18; TEMP 99; O2SAT 100
--- NOTE | 2025-03-18 16:06 | EKG ---
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
== END 2025-03-17 23:44 | disposition home or self-care (01) ==
LOC: EEVIPCON 21:17 → EDH 21:17
DX: F41.1 Generalized anxiety disorder (principal); R07.89 Other chest pain; J45.909 Unspecified asthma, uncomplicated; I10 Essential (primary) hypertension; Z79.52 Long term (current) use of systemic steroids; Z88.0 Allergy status to penicillin; Z88.6 Allergy status to analgesic agent
CPT/HCPCS: 99284; 96374; 84484; 80048; 84703; 85025; 36415; 93005; J3360